=== PATIENT | male | born 1970 | race Caucasian/White ===

== ENCOUNTER 2017-09-03 05:35 | Emergency (ER) | payer OTHER ==
[2017-09-03] MEDS ORDERED: ONDANSETRON HCL/PF 4 MG/ 2ML VIAL IVP ONE (05:47)
[2017-09-03] MEDS ORDERED: fentaNYL CITRATE/PF 100 MCG/ 2ML AMP IVP ONE ×2 (05:53→07:10)
[2017-09-03] MEDS ORDERED: 0.9 % SODIUM CHLORIDE 1,000 ML IV ONE ×2 (05:54→07:22)
[2017-09-03] MEDS ORDERED: 0.9 % SODIUM CHLORIDE 1,000 ML IV SCH ×2 (06:00)
[2017-09-03 06:13] LABS: BASOPHILS % 0.2 (0.0-1.5); EOSINOPHILS % 1.1 % (0.0-6.8); MEAN CORPUSCULAR HEMOGLOBIN 30.3 pg (28.0-34.0); MEAN CORPUSCULAR VOLUME 89.8 fl (80.0-100.0); MONOCYTES % 2.6 % (0.0-11.0); NEUTROPHILS # 5.8 # k/uL (1.4-7.7)
[2017-09-03 06:32] LABS: eGFR (African) > 60; eGFR (Non-African) > 60
--- NOTE | 2017-09-03 06:41 | ED Physician Documentation ---
Abdominal Pain - HISTORIAN Historian: patient, paramedics - HPI Chief Complaint: Abdominal Pain Onset: days ago (1600 yest) Duration: waxing Timing: worse Context: bad food (unsure). denies: out of country travel, recent trauma Severity: moderate Quality: pain, other (nausea ememsis dry heaves now) Associated Symptoms: nausea, vomiting - ROS CONST: no problems. denies: recent illness GI/: denies: constipation, black stools, bloody urine, bloody stools, dark urine MS/SKIN/LYMPH: denies: joint pain, leg swelling, rash - SOCIAL HX Smoking History: cigarettes Alcohol Use: none Drug Use: none - FAMILY HX Family History: none - PAST HX Surgeries/Procedures: appendectomy - REVIEWED ASSESSMENTS Nursing Assessment Reviewed: Yes Vitals Reviewed: Yes <Gabriele Rahman - Last Filed: 09/03/17 06:01> - PAST HX Past History: none <ROXANA DEMPSEY - Last Filed: 09/03/17 11:25> - HPI Additonal Information: rlq andinfra umbilical abd pain onset yest approx 1600hrs assoc w/ nausea emesis rod[ 6-8x - now dry heaves. pain cramping pt flexes at abdomen slight diaphoresis. never had this type pain before except appendicitis (Gabriele Rahman) - PAST HX Home Medications: Ambulatory Orders Medication Instructions Recorded Ciprofloxacin HCl [Cipro] 500 mg PO BID #20 tablet 09/03/17 Ondansetron HCl Rapdis [Zofran Odt] 4 mg PO Q6 PRN #30 tab 09/03/17 metroNIDAZOLE [Flagyl] 500 mg PO Q6H #40 tablet 09/03/17 Allergies/Adverse Reactions: Allergies Allergy/AdvReac Type Severity Reaction Status Date / Time No Known Allergies Allergy Unverified 09/03/17 06:07 - VITAL SIGNS Vital Signs: Vital Signs Temp Pulse Resp BP Pulse Ox 98.3 F 82 24 108/76 96 09/03/17 10:19 09/03/17 10:19 09/03/17 05:40 09/03/17 10:19 09/03/17 10:19 Progress <Gabriele Rahman - Last Filed: 09/03/17 06:01> <ROXANA DEMPSEY - Last Filed: 09/03/17 11:25> - Progress Progress: [address] results with patient, discussed discharge plan, offered observation admission due to vomiting. Patient refuses admission at this time. Will start IV antibiotic, attempt po's. 0940 Antibiotics complete. Patient states he feels better, ready for discharge. Will attempt Po's prior to leaving. Patient able to keep down ice chips and sips. Wants to attempt outpatient treatment, has local delivery driver coming to take him home to [place]. (ROXANA DEMPSEY) - Lab Results Lab Results: Lab Results 09/03/17 09/03/17 06:05 06:05 WBC 7.10 K/ul K/ul (4.00-12.00) RBC 5.53 M/ul H M/ul (3.90-5.20) Hgb 16.8 g/dL g/dL (12.0-18.0) Hct 49.6 % % (37.0-53.0) MCV 89.8 fl fl (80.0-100.0) MCH 30.3 pg pg (28.0-34.0) MCHC 33.8 g/dL g/dL (30.0-36.0) RDW 13.3 % % (11.3-14.3) Plt Count 181 K/mm3 K/mm3 (130-400) Neut % (Auto) 81.8 % H % (39.0-79.0) Lymph % (Auto) 13.3 % L % (16.0-50.0) Walker % (Auto) 2.6 % % (0.0-11.0) Eos % (Auto) 1.1 % % (0.0-6.8) Baso % (Auto) 0.2 (0.0-1.5) Neut # (Auto) 5.8 # k/uL # k/uL (1.4-7.7) Lymph # (Auto) 0.9 # k/uL # k/uL (0.6-4.0) Walker # (Auto) 0.2 # k/uL # k/uL (0.0-0.9) Eos # (Auto) 0.1 # k/uL # k/uL (0.0-0.6) Baso # (Auto) 0.0 # k/uL # k/uL (0.0-0.5) Reactive Lymphs % 1.0 % % (0.0-5.0) Reactive Lymphs # 0.1 # k/uL # k/uL (0.0-0.8) Sodium 137 mmol/L mmol/L (136-145) Potassium 3.9 mmol/L mmol/L (3.5-5.1) Chloride 104 mmol/L mmol/L (98-107) Carbon Dioxide 24 mmol/L mmol/L (22-30) BUN 11 mg/dL mg/dL (9-20) Creatinine 1.20 mg/dL mg/dL (0.66-1.25) Estimated Creat Clear 89 Est GFR ( Amer) > 60 (60 - ) Est GFR (Non-Af Amer) > 60 (60 - ) Glucose 128 mg/dL H mg/dL (74-106) Calcium 9.5 mg/dL mg/dL (8.4-10.2) Total Bilirubin 0.8 mg/dL mg/dL (0.2-1.3) AST 15 U/L U/L (15-46) ALT 23 U/L U/L (13-69) Alkaline Phosphatase 88 U/L U/L (38-126) Total Protein 7.6 g/dL g/dL (6.3-8.2) Albumin 4.3 g/dL g/dL (3.5-5.0) Lipase 45 U/L U/L (23-300) - Orders Orders: ED Orders Category Date Time Status Place IV Lock 1T Care 09/03/17 05:49 Active CHEST 1 VIEW [RAD] Stat Exams 09/03/[address] ABD & PELVIS W/O CON Stat Exams 09/03/17 Completed CBC/PLATELET/DIFF Routine Lab 09/03/17 06:05 Completed CMP Routine Lab 09/03/17 06:05 Completed LIPASE Stat Lab 09/03/17 06:05 Completed UA [URINALYSIS] Routine Lab 09/03/17 Ordered 0.9 % Sodium Chloride [Normal Saline] 1,000 ml Med 09/03/17 05:54 Discontinued IV .STK-MED 0.9 % Sodium Chloride [Normal Saline] 1,000 ml Med 09/03/17 07:22 Discontinued IV NOW 0.9 % Sodium Chloride [Normal Saline] 1,000 ml Med 09/03/17 06:00 Discontinued IV Q10H 0.9 % Sodium Chloride [Normal Saline] 1,000 ml Med 09/03/17 06:00 Discontinued IV Q10H Ciprofloxacin/D5w [Cipro] 200 ml Med 09/03/17 07:27 Discontinued IV .STK-MED Ciprofloxacin/D5w [Cipro] 400 mg Med 09/03/17 07:23 Discontinued Premix Bag [Premix Fluid] 1 bag IV NOW HYDROcodone /APAP 5/325 [[place] 5/325] Med 09/03/17 09:08 Discontinued 2 each PO NOW ONE Ondansetron HCl/Pf [Zofran 4 mg/2 ml] Med 09/03/17 05:47 Discontinued 4 mg IVP NOW ONE fentaNYL CITRATE/PF [Duragesic] Med 09/03/17 05:53 Discontinued 50 mcg IVP NOW ONE fentaNYL CITRATE/PF [Duragesic] Med 09/03/17 07:10 Discontinued 50 mcg IVP NOW ONE metroNIDAZOLE/SODIUM CHLORIDE [Flagyl] 100 ml Med 09/03/17 07:27 Discontinued IV .STK-MED metroNIDAZOLE/SODIUM CHLORIDE [Flagyl] 500 mg Med 09/03/17 07:23 Discontinued Premix Bag [Premix Fluid] 1 bag IV NOW Abdominal Pain Physical Exam - Physical Exam General Appearance: moderate distress EENT: eye inspection normal NECK: normal inspection RESPIRATORY: no resp distress, chest non-tender, breath sounds normal ABDOMEN: soft, tenderness (farheen infraumbilical and rlq) BACK: normal inspection SKIN: normal color, diaphoresis EXTREMITIES: non-tender NEURO: oriented X3, motor nml, sensation nml, mood/affect nml <Gabriele Rahman - Last Filed: 09/03/17 06:01> - Physical Exam Vital Signs: Vital Signs Temp Pulse Resp BP Pulse Ox 98.3 F 82 24 108/76 96 09/03/17 10:19 09/03/17 10:19 09/03/17 05:40 09/03/17 10:19 09/03/17 10:19 Discharge <Gabriele Rahman - Last Filed: 09/03/17 06:01> Decision to Admit: NO Decision Time: 10:00 <ROXANA DEMPSEY - Last Filed: 09/03/17 11:25> Clincal Impression: Colitis Prescriptions: Ciprofloxacin HCl [Cipro] 500 mg PO BID #20 tablet metroNIDAZOLE [Flagyl] 500 mg PO Q6H #40 tablet Ondansetron HCl Rapdis [Zofran Odt] 4 mg PO Q6 PRN #30 tab PRN Reason: Nausea / Vomiting Referrals: Primary Doctor,No [Primary Care Provider] - 2 Days Additional Instructions: Diet: Clear liquids Sprite/7-up Juices apple, white grape Gatorade/Powerade Jello Popsicles When tolerating clear liquids, advance to bland/brat diet - such as crackers, rice, Bananas, apples/applesauce or toast Return to the emergency department or call your doctor, if you are having severe abdominal pain, fever >101.0, or if there is blood in the vomit or diarrhea, or you cannot keep down liquids or solid food. clearing supervisor your antibiotics at [facility] and start them this afternoon. You also have a prescription for nausea medication and pain medication. Do not drive while taking the pain medication. Pain: For mild pain Use Tylenol or Ibuprofen as needed per package directions Tylenol 500mg po q4h prn pain. Limit dose to 4G per day. Ibuprofen 600-800mg po TID prn pain - do not take for more than 4 days in a row. Condition: Stable Disposition: 01 HOME, SELF-CARE
[2017-09-03] MEDS ORDERED: CIPROFLOXACIN/D5W 400 MG in PREMIX BAG 1 BAG IV ONE (07:23)
[2017-09-03] MEDS ORDERED: metroNIDAZOLE/SODIUM CHLORIDE 500 MG in PREMIX BAG 1 BAG IV ONE (07:23)
[2017-09-03] MEDS ORDERED: metroNIDAZOLE/SODIUM CHLORIDE 100 ML IV ONE (07:27)
[2017-09-03] MEDS ORDERED: CIPROFLOXACIN/D5W 200 ML IV ONE (07:27)
--- NOTE | 2017-09-03 07:35 | Diagnostic Imaging Report ---
STEVEN BEARD [facility] [id number] Replaced By [facility] [address] [place], [place]. [address] Report Submission Date: Sep 03, 2017 7:04:44 AM WHEEL PRESSER Patient Study Name: KYLE FABIAN Date: Sep 03, 2017 6:35:35 AM WHEEL PRESSER Modality Type: CT\SR Gender: M Description: CT ABD & PELVIS W/O CO : 66 Institution: [facility] Physician: STEVEN BEARD CT Abdomen/pelvis without contrast History: LOWER ABD PAIN, STARTED APPROX 1600 ON 09/02/2017 Multiple axial images of the abdomen and pelvis are submitted with reconstructions No comparison studies Clear lung bases. No free intraperitoneal air. Mild thoracolumbar degenerative changes The liver, gallbladder, adrenal glands are within normal limits. Splenic calcified granulomas are present. The pancreas is slightly atrophic There is no hydronephrosis bilaterally. Mild prostatomegaly with prostatic calcification noted Left groin hernia contains fat. Scattered colonic diverticula are present without evidence of diverticulitis. Scattered air-fluid levels in the distal small bowel. Appendix is not identified. There is minimal right colonic wall thickening Impression: 1. Minimal right colonic wall thickening and fat stranding in the mesentery, early colitis is questioned. 2. No hydronephrosis. No biliary dilatation. Appendix is not identified. 3. Prostatic calcification. Left groin hernia contains fat. Appendix is not identified. No biliary dilatation. No hydronephrosis Electronically signed on Sep 03, 2017 7:04:44 AM WHEEL PRESSER by: Cece Adames Minimal fat stranding around the celiac axis and superior mesenteric artery. Addendum electronically signed by Cece Adames on September 03, 2017 7:11: 38 AM WHEEL PRESSER MTDD
--- NOTE | 2017-09-03 07:36 | Diagnostic Imaging Report ---
STEVEN BEARD [facility] [address] [facility] [address] [address] Report Submission Date: Sep 03, 2017 7:07:41 AM WIRE MACHINE OPERATOR Patient Study Name: KYLE FABIAN Date: Sep 03, 2017 6:43:57 AM WIRE MACHINE OPERATOR Modality Type: CR Gender: M Description: CHEST : 66 Institution: [facility] Physician: STEVEN BEARD Single frontal view of the chest History: COUGH, ABD PAIN No comparison studies Patient is rotated. Heart is normal in size. There is no focal consolidation, pleural effusion or pneumothorax. The left costophrenic angle is incompletely imaged No acute osseous pathology Impression: No focal consolidation or pleural effusion. Electronically signed on Sep 03, 2017 7:07:41 AM WIRE MACHINE OPERATOR by: Cece BELLO
[2017-09-03] MEDS ORDERED: HYDROcodone /APAP 5/325 1 EACH TABLET PO ONE (09:08)
[2017-09-03 10:22] VITALS: BP 108/76
== END 2017-09-03 10:15 | disposition home or self-care (01) ==
LOC: ED 05:35
DX: K52.9 Noninfective gastroenteritis and colitis, unspecified (principal)
CPT/HCPCS: 71010; 74176; 80053; 83690; 85025; A9270; J0744; J2405; J3010; J3490; J7030; 96361; 96374; 96375; 96376; 99283; S1016